=== PATIENT | female | born 1955 | race Caucasian/White ===

== ENCOUNTER 2016-08-13 17:52 | Emergency (ER) | payer BC ==
[2016-08-13] MEDS ORDERED: ESOMEPRAZOLE MA40 MG (18:02)
[2016-08-13] MEDS ORDERED: AVAPRO75 MG (18:02)
[2016-08-13] MEDS ORDERED: METHOTREXATE2.5 MG (18:03)
[2016-08-13] MEDS ORDERED: ASPIRIN81 MG (18:03)
[2016-08-13] MEDS ORDERED: HCTZ (18:03)
[2016-08-13] MEDS ORDERED: COD LIVER OIL1 EACH (18:03)
[2016-08-13] MEDS ORDERED: CRESTOR10 MG (18:03)
[2016-08-13] MEDS ORDERED: FOLIC ACID (18:04)
== END 2016-08-13 19:02 | disposition home or self-care (01) ==
LOC: SED 17:52
DX: I80.02 Phlebitis and thrombophlebitis of superficial vessels of left lower extremity (principal); K21.9 Gastro-esophageal reflux disease without esophagitis; E78.5 Hyperlipidemia, unspecified; Z90.710 Acquired absence of both cervix and uterus
CPT/HCPCS: 99282